=== PATIENT | female | born 1960 | race Caucasian/White ===

== ENCOUNTER 2019-09-01 17:40 | Emergency (ER) | payer OTHER ==
[~2019-09-01] VITALS: Ht 162.6 cm; Wt 101.2 kg
[~2019-09-01 17:40] MED LIST: ALBU17AE26 IH; FLUT1DIS IH; MONT10TA22 PO; PRED10TA PO
[2019-09-01 17:44] VITALS: BP_SYST 151
--- NOTE | 2019-09-01 17:52 | NUR ---
Patient triaged and placed in waiting room. VSS and patient appears in no acute distress at this time. Accompanied by , awaiting available bed, and MD notified of need for MSE.
--- NOTE | 2019-09-01 18:03 | NUR ---
PT COMES TO ER WITH C/O SOB AND DIFFICULTY IN BREATHING WORSENING IN THE LAST SEVERAL DAYS. STATES SHE WAS SEEN BY HER PCP LAST WEEK AND GIVEN LEVAQUIN BUT NOT GETTING ANY BETTER. STATES HE WAS DIAGNOSED WITH PNEUMONIA AND HAD A SUBSEQUENT XRAY THAT THEN SHOWED NEGATIVE FOR PNEUMONIA. PT CURRENTLY TACYPNIC WITH JESSICA WHEEZING. RT CALLED AND DR AGUIAR INFORMED.
--- NOTE | 2019-09-01 18:09 | NUR ---
DR AGUIAR IN ROOM FOR EXAM.
[2019-09-01] MEDS ORDERED: IPRATROPIUM/ALBUTEROL SULFATE 3 ML AMPUL.NEB (DUONEB) INH ONE (18:15)
[2019-09-01] MEDS ORDERED: methylPREDNISolone SOD SUCC/PF 62.5 MG/ML VIAL IM ONE (18:15)
--- NOTE | 2019-09-01 18:32 | NUR ---
PT GETTING BREATHING TX AT THIS TIME, DENIES ANY CP AT THIS TIME. NEXT TO PT. WILL CONT TO MONITOR CLOSELY.
--- NOTE | 2019-09-01 18:44 | NUR ---
PT COMPLAINING OF PAIN TO LEFT DELTOID AFTER RECEIVING IM INJECTION. DR COSME BRAND.
[2019-09-01] MEDS ORDERED: ALBUTEROL SULFATE 0.083% 2.5 MG/3 ML VIAL.NEB INH ONE (18:45)
[2019-09-01] MEDS ORDERED: BUDESONIDE 0.5 MG/2 ML AMPUL.NEB INH ONE (18:45)
--- NOTE | 2019-09-01 19:48 | NUR ---
Patient given written and verbal discharge instructions and verbalizes understanding. ER MD discussed with patient the results and treatment provided. Patient in stable condition. ID arm band removed. Rx of Promethazine with Codeine, Prednisone and Tessalon perles given. Patient educated on pain management and to follow up with PMD. Pain Scale 0/10 Opportunity for questions provided and answered. Medication side effect fact sheet provided.
[2019-09-01 19:50] VITALS: BP_SYST 138
== END 2019-09-01 19:50 | disposition home or self-care (01) ==
LOC: SED 17:40
DX: J45.901 Unspecified asthma with (acute) exacerbation (principal); Z91.040 Latex allergy status; Z79.899 Other long term (current) drug therapy
CPT/HCPCS: 71046; 94640; 99285; J2930; J7613; J7620; J7626